=== PATIENT | female | born 1940 | race Caucasian/White ===

== ENCOUNTER → 2017-04-01 | Outpatient (CLI) | payer MEDICARE, OTHER ==
[~2017-04-01] MED LIST: BACTRIM DS 8001 TAB PO; CEFTIN500 MG PO; CEPHALEXIN500 M1 PO; ESTER C1 TA1 PO; FAMILY PHARMAC0.4 MG PO; FOSAMAX PO; GARLIQUE400 MG PO; GLUCOSAMINE & C1 CAP PO; LORTAB 5/500 501 TAB PO; MICARDIS80 MG PO; OMEGA-31000 MG PO; PERCOCET 325 MG1 TA2 PO; PYRIDIUM200 M1 PO; VITAMIN D1000 IU PO; vagifem VG
== END ==
LOC: MC.RAD 10:30
DX: Z12.31 Encounter for screening mammogram for malignant neoplasm of breast (principal)

== ENCOUNTER → 2018-05-04 | Outpatient (CLI) | payer MEDICARE, OTHER | LOC: MC.RAD 13:16 | DX: Z12.31 Encounter for screening mammogram for malignant neoplasm of breast (principal) ==

== ENCOUNTER → 2023-05-30 | Outpatient (CLI) | payer MEDICARE, OTHER ==
[2004-10-02 05:37] VITALS: BP 177/87; PULSE 85; TEMP 99
== END ==
LOC: MC.RAD 10:59
DX: N63.10 Unspecified lump in the right breast, unspecified quadrant (principal)

== ENCOUNTER → 2023-06-08 | Outpatient (CLI) | payer MEDICARE, OTHER ==
[2004-10-02 05:37] VITALS: BP 177/87; PULSE 85; TEMP 99
== END ==
LOC: MC.RAD 09:41
DX: R92.8 Other abnormal and inconclusive findings on diagnostic imaging of breast (principal)

== ENCOUNTER → 2023-08-22 | Outpatient (CLI) | payer MEDICARE, OTHER | LOC: MC.RAD 12:00 | DX: C50.911 Malignant neoplasm of unspecified site of right female breast (principal) ==